=== PATIENT | male | born 1990 | race Hispanic/Latino ===

== ENCOUNTER 2018-04-18 19:17 | Emergency (ER) | payer BC ==
[2018-04-18] MEDS ORDERED: Oxycodone/Acetaminophen 5/325 mg Tab PO ONE (19:28)
--- NOTE | 2018-04-18 19:35 | ED PDOC ---
Lower Extremity Pain/Injury Time Seen by Provider: 04/18/18 19:22 Chief Complaint (Nursing): Lower Extremity Problem/Injury Chief Complaint (Provider): Left Foot / Ankle Pain History Per: Patient History/Exam Limitations: no limitations Onset/Duration Of Symptoms: Mins (pilot captain) Current Symptoms Are (Timing): Still Present Pain Scale Rating Of: 9 Additional History Per: EMS Additional Complaint(s): 28 year old male presents to the ED via EMS for evaluation of a left ankle and foot injury sustained just prior to arrival. Patient states that he was playing basketball when he attempted to stop himself mid sprint and bent his foot upwards against a wall behind the hoop. He notes gradually brining himself down to the ground after feeling a crack to the ankle, now reporting 9/10 pain to the affected areas. Otherwise, (-) radiation of the pain, (-) prior ankle injury or surgery. 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) - Surgical History Surgical History: No Surg Hx - Family History Family History: States: Unknown Family Hx - Social History Current smoker - smoking cessation education provided: No Alcohol: Social Drugs: Cocaine (but not in over a year) - Home Medications Home Medications: Ambulatory Orders Medication Instructions Recorded Ibuprofen [Motrin Tab] 800 mg PO Q8 PRN #21 tab 04/18/18 oxyCODONE/Acetaminophen [Percocet 1 ea PO Q6 PRN #12 tab 04/18/18 5/325 mg Tab] - Allergies Allergies/Adverse Reactions: Allergies Allergy/AdvReac Type Severity Reaction Status Date / Time No Known Allergies Allergy Verified 04/18/18 19:21 Review of Systems ROS Statement: Except As Marked, All Systems Reviewed And Found Negative Musculoskeletal: Positive for: Other (left ankle and foot pain) Physical Exam - Reviewed Nursing Documentation Reviewed: Yes Vital Signs Reviewed: Yes - Physical Exam Comments: GENERAL APPEARANCE: Patient is awake, alert, oriented x 3, in moderate painful distress. SKIN: Warm, dry; (-) cyanosis. LOWER EXTREMITY: Left Ankle/ Foot: large effusion to left ankle medial aspect greater than lateral aspect; diffuse tenderness to ankle; tenderness to distal 5th metatarsal and lateral aspect of mid foot; no ROM at ankle secondary to pain. Knee and hip: (-) tenderness, (+) full ROM. No calf tenderness. Capillary refill intact. CARDIOVASCULAR: (+) distal pulse. NEUROLOGIC: (+) distal sensation. - ECG O2 Sat by Pulse Oximetry: 99 (RA) Pulse Ox Interpretation: Normal Medical Decision Making Medical Decision Making: Initial Impression: acute ankle and foot pain, probable fracture Time: 1924 Initial Plan: --Percocet 1 tab (Not driving) --Toradol 30mg IM --Left foot XR --Left ankle XR 1939 Spoke to podiatry resident Maryjane who is agreeable to evaluate patient in ED. 1953 Ankle XR: talus fracture, as read by CRISSY Handley. Foot XR: no acute disease, as read by CRISSY Handley. Patient advised that official radiology read of XR is still pending and will c all the patient if there is any discrepancy within 24 hour [address] evaluation of lower extremity for better images. CT without contrast ordered. [address] 2149 Podiatry notified patient returned from CT. [address] lower ext w/o contrast: Impression: comminuted fracture of the lateral and inferior talus with extension to the subtalar joint. Electronically signed on Apr 18, 2018 9:49:32 PM EDT by Jailyn Hart M.D. Patient supplied with CT report for follow up with Dr Tony Sandoval(podiatry) in clinic tomorrow. Splint applied by podiatry. NV intact after splint placement. Patient supplied with crutches and instructed on crutch walking. 2234 On re-evaluation, patient reports improvement of symptoms. On exam, patient remains AAOx3, in no acute distress. Lungs clear to auscultation, cardiac RRR, repeat neuro exam shows no focal findings. Vitals stable. RICE encouraged. Educated on splint care. Lab/Diagnostic results d/w the patient in great detail. Diagnosis of acute ankle pain and swelling, talus fracture d/w the patient. Based on history, exam and diagnostic results, plan will be for outpatient follow up with Dr Sandoval tomorrow in podiatry clinic. Patient instructed to follow-up with pmd / referral provided / the clinic in 1- 2 days without fail. Advised to take medication as prescribed. Return to the emergency room at any time for any new or worsening symptoms. Patient states he fully agrees with and understands discharge instructions. States that he agrees with the plan and disposition. Verbalized and repeated discharge instructions and plan. I have given the patient opportunity to ask any additional questions. Scribe Attestation: Documented by Gissel Benites, acting as a scribe for Belinda Handley PA-C. Provider Scribe Attestation: All medical record entries made by the Scribe were at my direction and personally dictated by me. I have reviewed the chart and agree that the record accurately reflects my personal performance of the history, physical exam, medical decision making, and the department course for this patient. I have also personally directed, reviewed, and agree with the discharge instructions and disposition. Disposition - Clinical Impression Clinical Impression: Fracture of talus of left ankle, closed, Ankle pain, left, Ankle effusion - Patient ED Disposition Is Patient to be Admitted: No Counseled Patient/Family Regarding: Studies Performed, Diagnosis, Need For Followup, Rx Given - Disposition Referrals: Podiatry Clinic [Outside] Disposition: Routine/Home Disposition Time: 22:35 Condition: STABLE Additional Instructions: The emergency medical care you received today was directed at your acute symptoms. If you were prescribed any medication, please fill it and take as directed. It may take several days for your symptoms to resolve. Return to the Emergency Department if your symptoms worsen, do not improve, or if you have any other problems. Please contact your doctor in 2 days for re-evaluation and follow up / or call one of the physicians/clinics you have been referred to that are listed on the Patient Visit Information form that is included in your discharge packet. Bring any paperwork you were given at discharge with you along with any medications you are taking to your follow up visit. Our treatment cannot replace ongoing medical care by a primary care provider (PCP) outside of the emergency department. Prescriptions: Ibuprofen [Motrin Tab] 800 mg PO Q8 PRN #21 tab PRN Reason: Pain, Moderate (4-7) oxyCODONE/Acetaminophen [Percocet 5/325 mg Tab] 1 ea PO Q6 PRN #12 tab PRN Reason: Pain, Severe (8-10) Instructions: Ankle Fracture Forms: [employer] (Sinhala) Print Language: YEMENI - POA Present On Arrival: Falls Or Trauma
--- NOTE | 2018-04-18 22:40 | CP.PCM.CON ---
History of Present Illness - History of Present Illness History of Present Illness: Podiatry Consult Note for Dr. Sandoval: 28 yo male patient, with no significant PMHx, seen and evaluated for L foot pain. Patient was playing basketball tonight, was running, tried to slow himself down, and ran into the wall while dorsiflexing his ankle. He immediately was unable to weightbear to the LLE. He currently rates his pain 8/10 and notes that his ankle feels very swollen. Patient denies N/V/F/SOB. PMHx: Denies PSHx: Denies All: Denies Review of Systems - Review of Systems Review of Systems: As per HPI Past Patient History - Past Social History Alcohol: Social Drugs: Cocaine (but not in over a year) - NEUROLOGICAL Hx Seizures: Yes (secondary to alcohol and cocaine use) - PSYCHIATRIC Hx Substance Use: No Meds Home Medications: Home Medication List Medication Instructions Recorded Confirmed Type Ibuprofen [Motrin Tab] 800 mg PO Q8 PRN #21 tab 04/18/18 Rx oxyCODONE/Acetaminophen [Percocet 1 ea PO Q6 PRN #12 tab 04/18/18 Rx 5/325 mg Tab] Allergies/Adverse Reactions: Allergies Allergy/AdvReac Type Severity Reaction Status Date / Time No Known Allergies Allergy Verified 04/18/18 19:21 Physical Exam - Constitutional Appears: Well, Non-toxic, No Acute Distress - Head Exam Head Exam: ATRAUMATIC, NORMOCEPHALIC - Extremities Exam Additional comments: LLE focused exam: Vascular: DP/PT 2/4, CFT <3 seconds, TG warm to warm, + 2 pitting edema to medial and lateral malleolar area Ortho: Pain upon palpation of L medial and lateral malleoli with significant pain upon palpation inferior to lateral malleolus, no pain elicited upon calf compression, achilles tendon intact Neuro: Gross and protective sensation intact Derm: No open lesions, no erythema, no skin tenting, no clinical signs of infection appreciated - Neurological Exam Neurological exam: Alert, Oriented x3 - Psychiatric Exam Psychiatric exam: Normal Affect, Normal Mood Results - Vital Signs Recent Vital Signs: Last Vital Signs Temp 99.2 F 04/18/18 19:21 Pulse 98 H 04/18/18 19:21 Resp 20 04/18/18 19:21 BP 142/90 04/18/18 19:21 Pulse Ox 99 04/18/18 22:36 Assessment & Plan - Assessment and Plan (Free Text) Assessment: 28 yo male patient, with no significant PMHx, seen and evaluated for L foot pain secondary to talar fracture Plan: Patient seen and evaluated Patient plan discussed with Dr. Jaime Malloy ankle and foot x-rays ordered; Nondisplaced comminuted fracture of the lateral base of the talus without dislocation or subluxation apparent. Moderate soft tissue edema seen medially and posteriorly Left lower extremity CT scan ordered; final read pending Posterior splint applied to patients LLE - Patient instructed to remain NWB to the LLE with the use of crutches OTC pain medication as needed Patient to follow up in clinic tomorrow morning with Dr. Snadoval Thank you for the consult - Date & Time Date: 04/18/18 Time: 22:38
[2018-04-18 22:45] VITALS: BP 125/74; PULSE 66; RESP 18; TEMP 98.7; O2SAT 100
--- NOTE | 2018-04-19 08:10 | RAD ---
Date of service: 04/18/2018 PROCEDURE: Left Ankle Radiographs. HISTORY: joint pain, r/o fracture, basketball injury COMPARISON: None FINDINGS: BONES: There is a nondisplaced comminuted fracture at of the lateral base of the talus. JOINTS: Ankle mortise is intact however and the talar dome is intact as well. No dislocation or subluxation SOFT TISSUES: Apparent. Moderate medial and posterior ankle soft tissue edema is identified. OTHER FINDINGS: None. IMPRESSION: Nondisplaced comminuted fracture of the lateral base of the talus without dislocation or subluxation apparent. Moderate soft tissue edema seen medially and posteriorly.
--- NOTE | 2018-04-19 08:19 | RAD ---
Date of service: 04/18/2018 PROCEDURE: Left Foot Radiographs. HISTORY: joint pain, r/o fracture, basketball injury COMPARISON: None. FINDINGS: BONES: No acute fracture or destructive bony lesion identified. JOINTS: Normal. SOFT TISSUES: Normal. OTHER FINDINGS: None. IMPRESSION: Normal left foot radiographs.
--- NOTE | 2018-04-19 10:40 | CT ---
Date of service: 04/18/2018 PROCEDURE: CT left foot HISTORY: r/o talus fracture COMPARISON: Not available TECHNIQUE: 2.5 mm contiguous axial sections were acquired through the foot. Sagittal and coronal images were reformatted from the axial scan. FINDINGS: There is a comminuted minimally displaced fracture of the lateral inferior talus extending to the posterior subtalar articulation. There are no significantly displaced bony fragments in these tarsal sinus. There is a comminuted nondisplaced intra-articular fracture at the base of the 4th metatarsal. Also noted is a small probable benign bone island in the base of the 4th metatarsal, incidentally. There is a small nondisplaced avulsion fracture of the lateral inferior aspect of the cuboid. No other fracture is identified. The talar dome is smooth. The anterior subtalar articulations are intact. Medial soft tissue swelling is noted, of uncertain significance. IMPRESSION: Comminuted minimally displaced fracture of the lateral inferior talus. Comminuted nondisplaced intra-articular fracture at the base of the 4th metatarsal. Nondisplaced small avulsion fracture of the lateral inferior cuboid. The preliminary findings for this examination were reported by [facility] Rad[facility] at 9:49 p.m. on 04/18/2018. There is discordance of this report with the preliminary findings. Fracture of the 4th metatarsal base and fracture of the cuboid were not described in the preliminary report of this examination. These findings and discrepancies were discussed by telephone with Physician Assistant Rodgers, in the emergency room, at 10:30 a.m. on 04/19/2018.
== END 2018-04-18 22:45 | disposition home or self-care (01) ==
LOC: H.ER 19:17
DX: S92.102A Unspecified fracture of left talus, initial encounter for closed fracture (principal); W22.8XXA Striking against or struck by other objects, initial encounter; Y93.67 Activity, basketball
CPT/HCPCS: 29515; 73610; 73630; 73700; 96372; 99285; J1885

== ENCOUNTER 2018-04-26 06:36 | Day surgery (SDC) | payer BC ==
[2018-04-21 13:45] VITALS: BMI 21.6
[2018-04-26 07:02] LABS: BASO % 0.7 % (0.0-2.0); EOS # 0.1 K/uL (0.0-0.7); EOS % 2.4 % (0.0-4.0); HEMOGLOBIN 14.1 g/dL (12.0-18.0); LYMPH # 2.9 K/uL (1.0-4.3); LYMPH % 47.9 % (20.0-40.0); MEAN CELL VOLUME 87.1 fl (80.0-94.0); MEAN CORPUSCULAR HEMOGLOBIN 30.3 pg (27.0-31.0); MEAN CORPUSCULAR HGB CONC 34.8 g/dL (33.0-37.0); MEAN PLATELET VOLUME 7.3 fl (7.2-11.7); MONO # 0.6 K/uL (0.0-0.8); MONO % 9.7 % (0.0-10.0); NEUT # 2.4 K/uL (1.8-7.0); NEUT % 39.3 % (50.0-75.0); NRBC % 0.1 % (0.0-0.0); RBC 4.66 Mil/uL (4.40-5.90); RED CELL DISTRIBUTION WIDTH 13.1 % (11.5-14.5); WHITE BLOOD COUNT 6.1 K/uL (4.8-10.8)
--- NOTE | 2018-04-26 07:06 | CP.PCM.PN ---
Subjective - Date & Time of Evaluation Date of Evaluation: 04/26/18 Time of Evaluation: 07:05 - Subjective Subjective: SDS Progress Note for Dr. Sandoval: 28 yo male patient, with no significant PMHx, seen and evaluated, in SDS for L talus ORIF of lateral process. Patient states that he is in mild pain to the outside of his ankle today. He continues to remain NWB with the use of crutches to the LLE, posterior splint is clean/dry/intact. He reports that he has been NPO since last night at 9pm. He notes he has had anesthesia in the past and denies any adverse reactions. Patient denies N/V/F/SOB/CP. Objective - Labs Labs: 04/26/18 06:55 - Constitutional Appears: Well, Non-toxic, No Acute Distress - Extremities Exam Additional comments: LLE focused exam: Vascular: DP/PT 2/4, CFT <3 seconds, TG warm to warm, + 2 pitting edema to medial and lateral malleolar area Ortho: Pain upon palpation of L medial and lateral malleoli with significant pain upon palpation inferior to lateral malleolus, no pain elicited upon calf compression, achilles tendon intact Neuro: Gross and protective sensation intact Derm: No open lesions, no erythema, no skin tenting, no clinical signs of infection appreciated - Neurological Exam Neurological Exam: Alert, Awake, Oriented x3 - Psychiatric Exam Psychiatric exam: Normal Affect, Normal Mood Assessment and Plan - Assessment and Plan (Free Text) Assessment: 28 yo male patient, with no significant PMHx, seen and evaluated, in SDS for L talus ORIF of lateral process. Plan: Pt was seen and examined in SDS Pt NPO status was confirmed All pre-op testing and clearance in chart Pt has exhausted all conservative treatment at this time and is opting for montes rgical intervention Pt was explained procedure and post-operative course All pt's questions were answered to satisfaction No guarantees were made Pt understands all risks, benefits and complications of procedure Pt will follow-up with Dr. Sandoval within 1 week of surgery
--- NOTE | 2018-04-26 07:08 | CP.SDSHP ---
Same Day Surgery H & P - History Proposed Procedure: Left foot talus, lateral process, ORIF Pre-Op Diagnosis: Left Talus fracture, lateral process - Allergies Allergies: Allergies No Known Allergies Allergy (Verified 04/26/18 06:50) - Physical Exam Mental Status: Alert & Oriented x3 Neuro: WNL Heart: WNL Lungs: WNL GI: WNL - {Optional Preform as Required} Ortho: Other (Pain to lateral aspect of L foot) - Impression Pt. Evaluated Today:Candidate for Anesthesia & Procedure: Yes - Date & Time Date: 04/26/18 Time: 07:09 Short Stay Discharge - Short Stay Discharge Admitting Diagnosis/Reason for Visit: S92.101A Disposition: HOME/ ROUTINE Referrals: FAMILY PROVIDER,NO [Primary Care Provider] - Additional Instructions (Diet, Activity): -Patient in good/stable condition for discharge home -Pt to resume medications per medical reconciliation -Resume regular diet -Please keep dressing clean, dry, & intact to surgical site -Use plastic bag over bandage for showering -Wear post op shoe at all times when ambulating -Call clinic if you see signs of infection (redness, swelling, malodor) -Please make an appointment to see Dr. Sandoval in clinic within 2 weeks for post-op check Progress Note/Discharge Note with Instructions: - Patient evaluated bedside in recovery - After surgical procedure patient in NAD - (+) Void, (+) Appetite - Capillary refill time <3s and NVS intact. - Patient denies complaints at this time. - Post operative instructions and plan of care explained to patient at length. - Patient. acknowledges verbal understanding. - Patient stable for DC per podiatric surgery
[2018-04-26] MEDS ORDERED: Ropivacaine 0.5% 30ML IV ONE (07:10)
[2018-04-26] MEDS ORDERED: Propofol 10 mg/ml Inj (20 ML) ONE (07:14)
[2018-04-26] MEDS ORDERED: Midazolam 2 MG/2 ML VIAL ONE (07:14)
--- NOTE | 2018-04-26 07:17 | PCM.SURG1 ---
Surgeon's Initial Post Op Note - Surgeon's Notes Surgeon: Dr. Sandoval Pattern Clerk: Dr. Pa, Dr. Leggett, Dr. Arevalo Type of Anesthesia: General Endo Anesthesia Administered By: Dr. Kay Pre-Operative Diagnosis: L lateral talar process fracture Operative Findings: See Dictation. I: None Post-Operative Diagnosis: Same Operation Performed: L talar ORIF of lateral process Specimen/Specimens Removed: None Estimated Blood Loss: EBL {In ML}: 2 Blood Products Given: N/A Drains Used: No Drains Post-Op Condition: Good Date of Surgery/Procedure: 04/26/18 Time of Surgery/Procedure: 09:39
[2018-04-26] MEDS ORDERED: Bupivacaine HCl 0.25% PF (30 ml) Inj ONE (07:20)
[2018-04-26] MEDS ORDERED: Lidocaine 1% Inj (20ml) ONE (07:21)
[2018-04-26] MEDS ORDERED: Sodium Chloride 0.9% 1,000 ML IV SCH (07:45)
[2018-04-26] MEDS ORDERED: Lactated Ringer's 1,000 ML IV ONE ×3 (07:55→08:45)
[2018-04-26] MEDS ORDERED: Succinylcholine 200 mg/10 ml Inj IV ONE (08:18)
[2018-04-26] MEDS ORDERED: Dexamethasone 4 mg/1 ml ONE (08:29)
[2018-04-26] MEDS ORDERED: Rocuronium 10 mg/ml (5 ml) ONE (08:36)
[2018-04-26] MEDS ORDERED: ceFAZolin IV 1 gm in Dextrose 1 GM/50 ML BAG IVPB SCH (09:00)
[2018-04-26] MEDS ORDERED: Dexamethasone 4 mg/1 ml IVP PRN (09:43)
[2018-04-26] MEDS ORDERED: HYDROmorphone 0.5 mg/0.5 ml ISec IVP PRN (09:43)
--- NOTE | 2018-04-26 09:46 | PCM.ANESB2 ---
Popliteal Nerve Block - Popliteal Nerve Block Date of Procedure: 04/26/18 Anesthesiologist: Nick Kay Pre-Procedure Diagnosis: L talar fracture Post-Procedure Diagnosis: L talar fracture Procedure Performed: Popliteal Nerve Block Left - Procedure Popliteal Nerve Block: This procedure was explained to the patient that it is for post-operative pain management. Consent was obtained after a thorough discussion with the patient regarding the benefits and possible complications of local anesthetic block of the sciatic nerve at the popliteal level. The patient was brought to the operating room and standard monitors are applied. Time-out was held with the circulating nurse to confirm the correct surgery and the appropriate block. After applying oxygen by nasal cannula and administering IV Sedation, patient's operative leg was gently raised and supported and the groove in between the biceps femoris and vastus lateralis muscles was carefully palpated. The skin approximately 8cm above the popliteal crease was then marked. The ultrasound transducer was then applied to the posterior thigh approximately 8cm above the popliteal crease in the transverse plane and the sciatic nerve before its division was visualized lateral to the popliteal artery and in between the bicep femoris and semimembranosus/semitendinosus muscles. After identification, the lateral portion of the thigh was prepped with Chloroprep and Lidocaine 1% was injected subcutaneously for topical anesthesia. At this point, a # 21 gauge Stimuplex insulated 4 inch needle was inserted into pre-marked area and advanced in a perpendicular direction. The needle was inserted above the ultrasound transducer in-plane towards the sciatic nerve in a [id number] direction. Needle advancement was performed carefully under direct ultrasound visualization. After repeated negative aspiration, 30cc of 0.5% ropivacaine was injected in 5cc aliquots. Under ultrasound guidance the local anesthetics were observed surrounding sciatic nerve . The needle was removed intact and sterile dressing was applied. The patient tolerated the popliteal nerve block well with stable vital signs and was subsequently prepared for the surgery.
[2018-04-26] MEDS ORDERED: Oxycodone/Acetaminophen 5/325 mg Tab PO PRN ×2 (09:48)
[2018-04-26 09:55] VITALS: RESP 20
[2018-04-26 11:40] VITALS: BP 102/59; PULSE 59; TEMP 97.4; O2SAT 99
--- NOTE | 2018-04-29 22:22 | PCM.OP ---
Operative Report - Operative Report Date of Surgery/Procedure: 04/26/18 Time of Surgery/Procedure: 07:45 Surgeon: Dr. Sandoval Instructor Nurse: Dr. Pedro Pa, Dr. Leggett, Dr. Arevalo Anesthesia/Sedation: Anesthesia: General LMA and regional block Pre-Operative Diagnosis: Pre-Operative Diagnoses: 1)Left ankle displaced talar fracture of larteral process Post-Operative Diagnosis: same Indication for Surgery: Indications: The patient is a 28 year-old male with the above diagnoses. The patient signed the consent after careful explanation of risks, benefits, complication and alternatives for surgical procedure. No guarantees were given nor implied. 1 gram of ancef IV was given to the pt hour prior to the procedure. NPO status was confirmed prior to taking pt to the OR. Operative Findings: Preparation: The patient was brought to the operating room and placed on the operating room table in supine position. A well-padded pneumatic thigh tourniquet was placed to the patient's LEFT lower extremity. After induction of general anesthesia, the LEFT lower extremity was then prepped and draped in usual sterile manner. Esmarch was utilized to exsanguinate the patient's LEFT foot. Pneumatic thigh tourniquet was then inflated to 350 mmHg and procedure began. Procedure/Operation Description: PROCEDURE #1: Left ankle management of Talar fracture with internal fixation. Attention was directed to the lateral aspect of the Left foot. The exact location of fracture to lateral process of Talus was determined with Intra-operative Xray. Sterile marking pen was used to cabrera the location of the fracture. Utilizing #15 blade, approximately 1.5cm linear incision was made to the lateral aspect of left foot at the level of the fracture. The incision was carried deep using sharp and blunt dissection, taking care to retract all vital neurovascular structures. All bleeders were cauterized and ligated as necessary. Once lateral process of Talus was visualized through the incision, site of the fracture with comminution was determined with intra-operative Xray. Next, under fluoroscopic guidance, a 0.045 K-wire was placed across the fracture site of Lateral process of Talus from umair-lateral to postero-medial direction. The largest fracture fragment of lateral process was successfully captured with the K-wire. Correct anatomical alignment of the fracture fragment into talar body was confirmed with intra- operative Xray. Next, AO principles and techniques, a 3.5mm x 28 cannulated, partially threaded screw was put over the K-wire and across the fracture site. Proper placement of the screw, and excellent compression of the fracture fragment with talar body was confirmed with intra-operative Xray. The surgical site was irrigated with copious amount of normal sterile saline. Deep soft tissues of Left foot and ankle were reapproximated with #4-0 Vicryl, and the skin was reapproximated with #4-0 Prolene in horizontal mattress suture technique. Left lower extremity was dressed with Betadine soaked adaptic, 4x4, Kerlix and Bivalved below knee hard-cast was applied. The attending was present during the entire case. Estimated Blood Loss: Less than 5 mL Complications: None Discharge & Condition: Postoperative Condition: The patient tolerated the anesthesia and procedure well and was escorted to the recovery room with vital signs stable and neurovascular status intact to the Left foot. The patient recei bud regional popliteal block by the anesthesiologist after the case. This patient will follow up with Dr. Sandoval.
== END 2018-04-26 12:21 | disposition home or self-care (01) ==
LOC: H.OPSURG 06:36
PROVIDERS: ATTEND Podiatrist Foot & Ankle Surgery
DX: S92.192A Other fracture of left talus, initial encounter for closed fracture (principal); X58.XXXA Exposure to other specified factors, initial encounter
CPT/HCPCS: 28445; 36415; 85025; J0330; J0690; J1100; J2001; J2250; J2405; J2704; J3010; J7120

== ENCOUNTER 2018-05-14 21:50 | Emergency (ER) | payer BC ==
[2018-05-14 21:50] VITALS: BMI 21.6
[2018-05-14 22:06] VITALS: BP 150/83; PULSE 68; RESP 18; TEMP 98.2; O2SAT 99
--- NOTE | 2018-05-14 22:29 | ED PDOC ---
HPI: Wound Care - HPI Time Seen by Provider: 05/14/18 22:07 Chief Complaint (Nursing): Wound Check Chief Complaint (Provider): Wound check History Per: Patient Additional Complaint(s): Patient had surgery 04/26/18, patient has 2nd cast on. Cast had gotten wet and was advised to come in for eval and change if wet. 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) Denies: Chronic Kidney Disease - Family History Family History: States: Unknown Family Hx - Home Medications Home Medications: Ambulatory Orders Medication Instructions Recorded Ibuprofen [Motrin Tab] 800 mg PO Q8 PRN #21 tab 04/18/18 oxyCODONE/Acetaminophen [Percocet 1 ea PO Q6 PRN #12 tab 04/18/18 5/325 mg Tab] oxyCODONE/Acetaminophen [Percocet 1 tab PO .Q4-6 PRN 04/26/18 5/325 mg Tab] - Allergies Allergies/Adverse Reactions: Allergies Allergy/AdvReac Type Severity Reaction Status Date / Time No Known Allergies Allergy Verified 04/26/18 06:50 Review of Systems ROS Statement: Except As Marked, All Systems Reviewed And Found Negative Physical Exam - Reviewed Nursing Documentation Reviewed: Yes Vital Signs Reviewed: Yes - Physical Exam Appears: Positive for: Well, Non-toxic, No Acute Distress Head Exam: Positive for: ATRAUMATIC, NORMAL INSPECTION, NORMOCEPHALIC Skin: Positive for: Normal Color, Warm, DRY Eye Exam: Positive for: EOMI, Normal appearance, PERRL ENT: Positive for: Normal ENT Inspection Neck: Positive for: Normal, Painless ROM Cardiovascular/Chest: Positive for: Regular Rate, Rhythm Respiratory: Positive for: CNT, Normal Breath Sounds Gastrointestinal/Abdominal: Positive for: Normal Exam, Soft Back: Positive for: Normal Inspection Extremity: Positive for: Other (deferred to podiatry) Neurologic/Psych: Positive for: Alert, Oriented - ECG O2 Sat by Pulse Oximetry: 99 Medical Decision Making Medical Decision Making: Podiatry consult obtained. see notes Disposition - Clinical Impression Clinical Impression: Visit for wound check, Encounter for cast change - Patient ED Disposition Is Patient to be Admitted: No - Disposition Disposition: Routine/Home Disposition Time: 22:30 Condition: STABLE - POA Present On Arrival: None
== END 2018-05-14 23:29 | disposition home or self-care (01) ==
LOC: H.ER 21:50
DX: Z48.01 Encounter for change or removal of surgical wound dressing (principal)

== ENCOUNTER 2018-10-25 00:28 | Emergency (ER) | payer BC ==
[2018-10-25 00:28] VITALS: BMI 21.6
[2018-10-25 00:45] VITALS: TEMP 98.7
[2018-10-25] MEDS ORDERED: Multivitamin (MVI) 10 ML, Folic Acid 1 MG, Thiamine 100 MG in Dextrose 5%/0.45% NS 1,00... IV ONE (01:11)
[2018-10-25 02:01] LABS: BASO # 0.1 K/uL (0.0-0.2); BASO % 0.9 % (0.0-2.0); EOS # 0.5 K/uL (0.0-0.7); EOS % 7.3 % (0.0-4.0); LYMPH # 2.7 K/uL (1.0-4.3); LYMPH % 36.8 % (20.0-40.0); MEAN CELL VOLUME 86.4 fl (80.0-94.0); MEAN CORPUSCULAR HEMOGLOBIN 29.2 pg (27.0-31.0); MEAN CORPUSCULAR HGB CONC 33.8 g/dL (33.0-37.0); MEAN PLATELET VOLUME 7.6 fl (7.2-11.7); MONO # 0.7 K/uL (0.0-0.8); MONO % 8.9 % (0.0-10.0); NEUT # 3.4 K/uL (1.8-7.0); NEUT % 46.1 % (50.0-75.0); NRBC % 0.3 % (0.0-0.0); RBC 4.8 Mil/uL (4.40-5.90); RED CELL DISTRIBUTION WIDTH 13.6 % (11.5-14.5); WHITE BLOOD COUNT 7.4 K/uL (4.8-10.8)
[2018-10-25 02:02] LABS: URINE BILIRUBIN NEGATIVE (NEGATIVE); URINE BLOOD NEGATIVE (NEGATIVE); URINE CLARITY CLEAR (Clear); URINE COLOR STRAW (YELLOW); URINE GLUCOSE (UA) NEG (NEGATIVE); URINE LEUKOCYTE ESTERASE NEG Leu/uL (Negative); URINE PROTEIN NEGATIVE (NEGATIVE); URINE UROBILINOGEN 0.2-1.0 mg/dL (0.2-1.0)
[2018-10-25 02:06] LABS: ALB/GLOB RATIO 1.5 (1.0-2.1); ALBUMIN 4.8 g/dL (3.5-5.0); ALT/SGPT 33 U/L (21-72); AST/SGOT 36 U/L (17-59); BLOOD UREA NITROGEN 19 mg/dl (9-20); CALCIUM 9.3 mg/dL (8.4-10.2); GFR NON-AFRICAN AMERICAN > 60
[2018-10-25 02:15] LABS: BARBITURATES, UR NEGATIVE (NEGATIVE); BENZODIAZEPINES, UR NEGATIVE (NEGATIVE); OPIATES, UR NEGATIVE (NEGATIVE); PHENCYCLIDINE, UR NEGATIVE (NEGATIVE)
--- NOTE | 2018-10-25 04:08 | ED PDOC ---
HPI: Seizure Time Seen by Provider: 10/25/18 01:00 Chief Complaint (Nursing): Seizure Chief Complaint (Provider): Seizure History Per: Patient History/Exam Limitations: no limitations Additional Complaint(s): 28 y/o male presents to the ED due to developing seizure aura. Patient admits to drinking heavily between Thursday overnight to Thursday morning. Patient reports as of last night he started to have a sense of oral seizures. He reports of having 2 previous seizures due to alcohol and had EEG that are normal and is not on any neuroleptic. Patient denies any seizures activity tonight. 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) Denies: Chronic Kidney Disease - Surgical History Surgical History: No Surg Hx - Family History Family History: States: Unknown Family Hx - Home Medications Home Medications: Ambulatory Orders Medication Instructions Recorded Ibuprofen [Motrin Tab] 800 mg PO Q8 PRN #21 tab 04/18/18 oxyCODONE/Acetaminophen [Percocet 1 ea PO Q6 PRN #12 tab 04/18/18 5/325 mg Tab] oxyCODONE/Acetaminophen [Percocet 1 tab PO .Q4-6 PRN 04/26/18 5/325 mg Tab] - Allergies Allergies/Adverse Reactions: Allergies Allergy/AdvReac Type Severity Reaction Status Date / Time No Known Allergies Allergy Verified 04/26/18 06:50 Review of Systems ROS Statement: Except As Marked, All Systems Reviewed And Found Negative Neurological: Positive for: Seizures Physical Exam - Reviewed Nursing Documentation Reviewed: Yes Vital Signs Reviewed: Yes - Physical Exam Appears: Positive for: Well, Non-toxic, No Acute Distress Head Exam: Positive for: ATRAUMATIC, NORMOCEPHALIC Skin: Positive for: Normal Color, Warm, Dry Eye Exam: Positive for: EOMI, Normal appearance, PERRL ENT: Positive for: Normal ENT Inspection Neck: Positive for: Normal, Painless ROM, Supple Cardiovascular/Chest: Positive for: Regular Rate, Rhythm. Negative for: Murmur Respiratory: Positive for: Normal Breath Sounds. Negative for: Wheezing Gastrointestinal/Abdominal: Positive for: Normal Exam, Soft. Negative for: Tenderness Back: Positive for: Normal Inspection. Negative for: L CVA Tenderness, R CVA Tenderness Extremity: Positive for: Normal ROM Neurological/Psych: Positive for: Awake, Alert, Normal Tone, Oriented (x3). Negative for: Motor/Sensory Deficits - Laboratory Results Result Diagrams: 10/25/18 01:53 10/25/18 01:53 Lab Results: Total Bilirubin 0.4 mg/dl (0.2-1.3) 10/25/18 01:53 AST 36 U/L (17-59) 10/25/18 01:53 ALT 33 U/L (21-72) 10/25/18 01:53 Alkaline Phosphatase 65 U/L (38-126) 10/25/18 01:53 Total Protein 8.0 G/DL (6.3-8.2) 10/25/18 01:53 Albumin 4.8 g/dL (3.5-5.0) 10/25/18 01:53 Globulin 3.3 gm/dL (2.2-3.9) 10/25/18 01:53 Albumin/Globulin Ratio 1.5 (1.0-2.1) 10/25/18 01:53 Urine Color Straw (YELLOW) 10/25/18 01:53 Urine Clarity Clear (Clear) 10/25/18 01:53 Urine pH 6.0 (5.0-8.0) 10/25/18 01:53 Ur Specific [place] 1.013 (1.003-1.030) 10/25/18 01:53 Urine Protein Negative mg/dL (NEGATIVE) 10/25/18 01:53 Urine Glucose (UA) Neg mg/dL (NEGATIVE) 10/25/18 01:53 Urine Ketones Negative mg/dL (NEGATIVE) 10/25/18 01:53 Urine Blood Negative (NEGATIVE) 10/25/18 01:53 Urine Nitrate Negative (NEGATIVE) 10/25/18 01:53 Urine Bilirubin Negative (NEGATIVE) 10/25/18 01:53 Urine Urobilinogen 0.2-1.0 mg/dL (0.2-1.0) 10/25/18 01:53 Ur Leukocyte Esterase Neg Sae/uL (Negative) 10/25/18 01:53 Urine RBC (Auto) < 1 /hpf (0-3) 10/25/18 01:53 Urine Microscopic WBC < 1 /hpf (0-5) 10/25/18 01:53 - ECG O2 Sat by Pulse Oximetry: 100 Medical Decision Making Medical Decision Making: Time: 246 Initial Impression: 28 y/o male with mild alcohol withdraw Initial Plan: -Alcohol serum -CMP -Drug screen -CBC -Urinalysis -Dextrose -Librium 0345: Patient reports feeling well with resolution in symptoms. No seizure activity for duration of ED visit labs reviewed show no clinically significant abnormalities. Patient is stable for discharge. Scribe Attestation: Documented by Brenda Brooks, acting as a scribe for Carlo Blanchard. Provider Scribe Attestation: All medical record entries made by the Scribe were at my direction and personally dictated by me. I have reviewed the chart and agree that the record accurately reflects my personal performance of the history, physical exam, medical decision making, and the department course for this patient. I have also personally directed, reviewed, and agree with the discharge instructions and disposition. Disposition - Clinical Impression Clinical Impression: Alcohol withdrawal - Disposition Disposition: Routine/Home Disposition Time: 03:45 Condition: STABLE Instructions: Alcohol Withdrawal Forms: [employer] (E[place]ian), [facility] ED School/Work Excuse
[2018-10-25 05:53] VITALS: BP 114/64; PULSE 78; RESP 17
[2018-10-25 06:02] VITALS: O2SAT 100
== END 2018-10-25 06:00 | disposition home or self-care (01) ==
LOC: H.ER 00:28
DX: F10.239 Alcohol dependence with withdrawal, unspecified (principal); R56.9 Unspecified convulsions
CPT/HCPCS: 80053; 81003; 85025; 96360; 96361; 99281; G0480; J3411; J7042